=== PATIENT | female | born 2005 | race Hispanic/Latino ===

== ENCOUNTER → 2024-04-10 | Outpatient (CLI) | payer OTHER ==
[2024-04-10 08:35] LABS: INR 1.03 (0.85-1.15); PROTHROMBIN TIME 11.1 SEC (9.6-11.6)
[2024-04-10 08:36] LABS: PARTIAL THROMBOPLASTIN TIME 27.1 SEC (26.3-35.5)
== END | disposition home or self-care (01) ==
LOC: RAH 07:51
PROVIDERS: ATTEND Obstetrics & Gynecology
DX: N63.21 Unspecified lump in the left breast, upper outer quadrant (principal); D24.2 Benign neoplasm of left breast; N61.0 Mastitis without abscess; Z79.01 Long term (current) use of anticoagulants
CPT/HCPCS: 19083; 85610; 85730; 36415; 88305; A4215 ×2; A4648